=== PATIENT | female | born 1980 | race Caucasian/White ===

== ENCOUNTER 2021-07-08 04:12 | Day surgery (SDC) | payer BC ==
[2021-07-04 12:54] VITALS: BMI 20.1
[2021-07-08] MEDS ORDERED: ACETAMINOPHEN 325 MG TABLET (FP) PO PRN (07:33)
[2021-07-08] MEDS ORDERED: oxyCODONE HCL 5 MG TABLET PO PRN (07:33)
[2021-07-08] MEDS ORDERED: ONDANSETRON 4 MG/2 ML VIAL IVPUSH PRN (07:33)
[2021-07-08] MEDS ORDERED: LACTATED RINGERS SOLUTION 1,000 ML IV SCH (07:45)
[2021-07-08] MEDS ORDERED: MIDAZOLAM HCL 2 MG/2 ML SINGLE DOSE VIAL ONE (08:32)
[2021-07-08] MEDS ORDERED: PROPOFOL 20 ML ONE (08:32)
[2021-07-08] MEDS ORDERED: LIDOCAINE HCL/PF 2% SDV 5ML VIAL ONE (08:33)
[2021-07-08] MEDS ORDERED: GLYCOPYRROLATE 0.2 MG/1 ML VIAL ONE (08:33)
[2021-07-08] MEDS ORDERED: KETOROLAC TROMETHAMINE 30 MG/1 ML VIAL ONE (08:34)
[2021-07-08] MEDS ORDERED: ceFAZolin SODIUM 1 GM VIAL IVPB ONE ×2 (08:43→08:46)
[2021-07-08] MEDS ORDERED: ceFAZolin SODIUM 1 GM VIAL ONE (08:54)
[2021-07-08 11:43] VITALS: TEMP 99
[2021-07-08 11:46] VITALS: BP 110/68; PULSE 80
== END 2021-07-08 11:44 | disposition home or self-care (01) ==
LOC: JASU-SURG 04:12
PROVIDERS: ATTEND Urology
PROC: 0TF4XZZ Fragmentation in Left Kidney Pelvis, External Approach (ICD-10-PCS; principal; 2021-07-08 08:15)
DX: N20.0 Calculus of kidney (principal)
CPT/HCPCS: 81025; C9803-CS; U0003; U0005

== ENCOUNTER 2021-07-10 04:09 | Day surgery (SDC) | payer BC ==
[2021-07-09 09:52] VITALS: BMI 20.1
[2021-07-10] MEDS ORDERED: PROPOFOL 20 ML ONE ×2 (14:57→15:25)
[2021-07-10] MEDS ORDERED: MIDAZOLAM HCL 2 MG/2 ML SINGLE DOSE VIAL ONE (14:58)
[2021-07-10] MEDS ORDERED: LIDOCAINE HCL/PF 2% SDV 5ML VIAL ONE (14:58)
[2021-07-10] MEDS ORDERED: DEXAMETHASONE SOD PHOSPHATE 4 MG/1 ML VIAL ONE (15:29)
[2021-07-10] MEDS ORDERED: ceFAZolin SODIUM 1 GM VIAL IVPB ONE (15:30)
[2021-07-10] MEDS ORDERED: ceFAZolin SODIUM 1 GM VIAL ONE (15:32)
[2021-07-10] MEDS ORDERED: KETOROLAC TROMETHAMINE 30 MG/1 ML VIAL ONE (16:44)
[2021-07-10] MEDS ORDERED: LIDOCAINE HCL 2% JELLY 10 ML CARTRIDGE ONE (16:44)
[2021-07-10] MEDS ORDERED: ONDANSETRON 4 MG/2 ML VIAL IVPUSH PRN (17:52)
[2021-07-10] MEDS ORDERED: oxyCODONE HCL 5 MG TABLET PO PRN (17:52)
[2021-07-10] MEDS ORDERED: LACTATED RINGERS SOLUTION 1,000 ML IV SCH (18:00)
[2021-07-10] MEDS ORDERED: ONDANSETRON 4 MG/2 ML VIAL ONE (19:10)
[2021-07-10 19:52] VITALS: BP 128/88; PULSE 86; TEMP 97.7
== END 2021-07-10 20:18 | disposition home or self-care (01) ==
LOC: JASU-SURG 04:09
PROVIDERS: ATTEND Urology
PROC: 0TC38ZZ Extirpation of Matter from Right Kidney Pelvis, Via Natural or Artificial Opening Endoscopic (ICD-10-PCS; principal; 2021-07-10 15:00)
PROC: 0T768DZ Dilation of Right Ureter with Intraluminal Device, Via Natural or Artificial Opening Endoscopic (ICD-10-PCS; 2021-07-10 15:00)
DX: N20.0 Calculus of kidney (principal)
CPT/HCPCS: 76000-TC-FY; 94760

== ENCOUNTER 2021-11-11 04:02 | Day surgery (SDC) | payer BC ==
[2021-11-11 10:41] VITALS: RESP 18; BMI 20.5
[2021-11-11] MEDS ORDERED: PROPOFOL 20 ML ONE ×2 (11:51→13:03)
[2021-11-11] MEDS ORDERED: LIDOCAINE HCL/PF 2% SDV 5ML VIAL ONE (12:25)
[2021-11-11] MEDS ORDERED: ONDANSETRON 4 MG/2 ML VIAL IVPUSH PRN (13:28)
[2021-11-11] MEDS ORDERED: ACETAMINOPHEN 325 MG TABLET (FP) PO PRN (13:28)
[2021-11-11] MEDS ORDERED: oxyCODONE HCL 5 MG TABLET PO PRN (13:28)
[2021-11-11] MEDS ORDERED: LACTATED RINGERS SOLUTION 1,000 ML IV SCH (13:30)
[2021-11-11] MEDS ORDERED: KETOROLAC TROMETHAMINE 30 MG/1 ML VIAL IVPUSH ONE ×2 (14:21→14:25)
[2021-11-11 16:18] VITALS: BP 133/71; PULSE 81; TEMP 98.2
== END 2021-11-11 15:50 | disposition home or self-care (01) ==
LOC: JASU-SURG 04:02
PROVIDERS: ATTEND Urology
PROC: 0TF3XZZ Fragmentation in Right Kidney Pelvis, External Approach (ICD-10-PCS; principal; 2021-11-11 12:00)
DX: N20.0 Calculus of kidney (principal)
CPT/HCPCS: 81025